=== PATIENT | male | born 1990 | race Hispanic/Latino ===

== ENCOUNTER 2020-06-30 21:46 | Emergency (ER) | payer OTHER ==
[~2020-06-30] VITALS: Ht 172.7 cm; Wt 107.1 kg
[2020-06-30] MEDS ORDERED: ZOLOFT100 MG PO (22:11)
[2020-06-30] MEDS ORDERED: LIPITOR40 MG PO (22:11)
[2020-06-30] MEDS ORDERED: METOPROLOL SUCC25 MG PO (22:12)
[2020-06-30] MEDS ORDERED: LANTUS100 UNITS/ SUB-Q (22:15)
[2020-06-30] MEDS ORDERED: NOVOLIN R100 UNIT/1 INJ (22:16)
[2020-06-30] MEDS ORDERED: KEFLEX500 MG PO (23:19)
== END 2020-06-30 23:35 | disposition home or self-care (01) ==
LOC: ED 21:46
DX: S02.32XA Fracture of orbital floor, left side, initial encounter for closed fracture (principal); Y04.8XXA Assault by other bodily force, initial encounter; E10.9 Type 1 diabetes mellitus without complications; I10 Essential (primary) hypertension; Z79.899 Other long term (current) drug therapy
CPT/HCPCS: 70450; 70486; 99284-25